=== PATIENT | male | born 1985 | race Caucasian/White ===

== ENCOUNTER 2021-09-18 10:48 | Emergency (ER) | payer OTHER ==
[~2021-09-18] VITALS: Ht 170.2 cm; Wt 79.5 kg
[2021-09-18 13:17] VITALS: BP 144/84
== END 2021-09-18 14:54 | disposition home or self-care (01) ==
LOC: ER 10:48
DX: S30.1XXA Contusion of abdominal wall, initial encounter (principal); X58.XXXA Exposure to other specified factors, initial encounter; Y93.89 Activity, other specified; Y92.89 Other specified places as the place of occurrence of the external cause; Y99.8 Other external cause status
CPT/HCPCS: 76700; 99284